=== PATIENT | female | born 1955 | race Two or more races ===

== ENCOUNTER 2024-07-21 19:41 | Emergency (ER) | payer MEDICAID, OTHER ==
[~2024-07-21] VITALS: Ht 157.5 cm; Wt 60.9 kg
--- NOTE | 2024-07-21 20:14 | ED.PDOC ---
Musculoskeletal HPI Comments 68 Y F, presents to the ED with CC of right shoulder pain. Patient states, that she has been experiencing right shoulder pain [id number]. Patient relays, that pain came on suddenly while standing and has been unable to move right arm since start of symptoms. Patient states, that current pain is an 8/10. Patient denies fall, weakness, numbness, or N/V/D. Chief Complaint: Upper Extremity Time Seen by MD: 20:00 Reviewed Notes: Nurses Notes, Medications, Allergies Allergies: Coded Allergies: NO KNOWN ALLERGIES (Unverified , 07/21/24) Information Source: Patient Mode of Arrival: Ambulatory Location: Right Extremity Location: Shoulder Timing: Hours Prehospital treatment: None Severity: Mild Able to Move Extremity: Yes Bear Weight: Limited Mechanism: None Circumstances: Spontaneous Onset of Symptoms: Spontaneous Symptoms: Pain DVT Risk Factors: NONE Last Tetanus: Unknown Associated signs and symptoms: Shoulder pain Past Medical History PAST MEDICAL HISTORY: High Lipids, HTN Surgical History: Denies all surgeries 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 SQUAD History: Unknown Family History Family History: Unknown Social History Smoker: Non-Smoker Alcohol: Denies ETOH Use Drugs: Denies Drug Use Lives In: Home Constitutional: denies: chills, diaphoresis, fatigue, fever, malaise, sweats, weakness, others EENTM: denies: blurred vision, double vision, ear bleeding, ear discharge, ear drainage, ear pain, ear ringing, eye pain, eye redness, hearing loss, mouth pain , mouth swelling, nasal discharge, nose bleeding, nose congestion, nose pain, photophobia, tearing, throat pain, throat swelling, voice changes, others Respiratory: denies: cough, hemoptysis, orthopnea, SOB at rest, shortness of breath, SOB with excertion, stridor, wheezing, others Cardiovascular: denies: chest pain, dizzy spells, diaphoresis, Dyspnea on exertion, edema, irregular heart beat, left arm pain, lightheadedness, palpitations, PND, syncope, others Gastrointestinal: denies: abdomen distended, abdominal pain, blood streaked bowels, constipated, diarrhea, dysphagia, difficulty swallowing, hematemesis, melena, nausea, poor appetite, poor fluid intake, rectal bleeding, rectal pain, vomiting, others Genitourinary: denies: abnormal vagina bleeding, burning, dyspareunia, dysuria, flank pain, frequency, hematuria, incontinence, pain, , vagina discharge, urgency, others Neurological: denies: dizziness, fainting, headache, left sided numbness, left sided weakness, numbness, paresthesia, pre-existing deficit, right sided numbness, right sided weakness, seizure, speech problems, tingling, tremors, weakness, others Musculoskeletal: reports: muscle pain (RIGHT SHOULDER ); denies: back pain, gout, joint pain, joint swelling, muscle stiffness, neck pain, others Integumetry: denies: bruises, change in color, change in hair/nails, dryness, laceration, lesions, lumps, rash, wounds, others Allergic/Immunocompromised: denies: Difficulty Healing, Frequent Infections, Hives, Itching, others Hematologic/Lymphatic: denies: anemia, blood clots, easy bleeding, easy bruising, swollen glands, others Endocrine: denies: excessive hunger, excessive sweating, excessive thirst, excessive urination, flushing, intolerance to cold, intolerance to heat, unexplained weight gain, unexplained weight loss, others Psychiatric: denies: anxiety, bipolar disorder, depression, hopeless, panic disorder, schizophrenia, sleepless, suicidal, others All Other Systems: Reviewed and Negative Physical Exam General Appearance: No Apparent Distress, Normal HEENT: Normal ENT Inspection, Pharynx Normal, TMs Normal Neck: Full Range of Motion, Non-Tender, Normal, Normal Inspection Respiratory: Chest Non-Tender, Lungs Clear, No Accessory Muscle Use, No Respiratory Distress, Normal Breath Sounds Cardiovascular: No Edema, No JVD, No Murmur, No Gallop, Normal Peripheral Pulses, Regular Rate/Rhythm Breast Exam: Deferred Gastrointestinal: No Organomegaly, Non Tender, No Pulsatile Mass, Normal Bowel Sounds, Soft Genitalia: Deferred Pelvic: Deferred Rectal: Deferred Extremities: No calf tenderness, Normal capillary refill, Normal inspection, Normal range of motion, Non-tender, No pedal edema Musculoskeletal : Location: Right Extremity Location: Shoulder Apperance: Limited ROM, Tenderness Neurologic: Alert, steel estimator II-XII nml as Tested, No Motor Deficits, Normal Affect, Normal Mood, No Sensory Deficits Cerebellar Function: Normal Reflexes: Normal Skin: Dry, Normal Color, Warm Lymphatic: No Adenopathy Was a procedure done? Was a procedure done?: No Differential Diagnosis EXT Differential Diagnosis: Fracture, Sprain, Dislocation, Gout, Strain X-Ray, Labs, Meds, VS Vital Signs Date Time Temp Pulse Resp B/P (MAP) Pulse Ox O2 Delivery O2 Flow Rate FiO2 07/21/24 20:25 97.9 73 18 162/86 (328) 97 [facility] [address] [facility] [address] Ph: [phone] DIAGNOSTIC IMAGING Diagnostic Imaging Report : [id number] Signed PATIENT: ALLEN JACKSONACCT: [id number] UNIT: [id number] : 1955 LOC: ER ROOM / BED: / AGE / SEX: 68 / F ADM STATUS: REG ER SERVICE 12 ORDERING PHYSICIAN: AMANDA CERVANTES PROCEDURE(s): LSHD2 - L SHOULDER 2+ VIEW XRAY REASON: pain ORDER NUMBER(s): [id number], ACCESSION NUMBER(s): [id number] CLINICAL INDICATION: Left shoulder pain TECHNIQUE: XY L SHOULDER 2+ VIEW XRAY Comparison: None FINDINGS/IMPRESSION: : There is no evidence of acute fracture or dislocation. Mild degenerative change of the acromioclavicular and glenohumeral joints with mild joint space narrowing of the acromioclavicular joint and osteophyte formation of the glenohumeral joint. Soft tissues are intact. Visualized portions of the lungs are clear. ATED BY: ALO ONEIL MD DICTATED DATE/TIME: 07/21/242040 SIGNED BY: ALO ONEIL MD SIGNED DATE/TIME: 07/21/242040 CC: X-Ray, Labs, Meds, VS Comment Imaging: X-rays and CT scans were reviewed and interpreted by this provider, imaging shows no fractures and no pathological disease. Pending radiology review. Laboratory: Labs reviewed and interpreted by this provider. No significant abnormalities noted. Patient has prior medical visits reviewed. Med reconciliation performed Vital signs reviewed Time of 1ST Reevaluation: 20:30 Reevaluation 1ST: Unchanged Patient Education/Counseling: Diagnosis, Treatment, Need For Follow Up (Follow up with the PCP in the next 24-48 hours.) Family Education/Counseling: No Family Present Departure 1 Departure Time of Disposition: 20:53 Impression: Primary Impression: Arthritis of left shoulder Disposition: HOME / SELF CARE / HOMELESS Condition: Fair e-Prescriptions Methylprednisolone (Medrol Dosepak) 4 Mg Rod 4 MG PO UD, #21 TAB UAD Prov: AMANDA CERVANTES PLASTICS HEAT WELDER 07/21/24 Discharged With: Self Critical Care Note Critical Care Time?: No Stability Stability form required: No Heart Score Heart Score: Heart Score Response (Comments) Value History N/A 0 EKG N/A 0 Age N/A 0 Risk Factors N/A 0 Troponin N/A 0 Total 0 I personally scribed for CERVANTES,CHRISTOPHER E PLASTICS HEAT WELDER ([email or web address]) on 07/21/24 at 20:14. Electronically submitted by Sophia Peña ([employer]). I personally scribed for CERVANTES,CHRISTOPHER E PLAST[employer] HEAT WELDER ([email or web address]) on 07/21/24 at 20:24. Electronically submitted by Sophia Peña ([employer]). I personally scribed for CERVANTES,CHRISTOPHER E PLASTICS HEAT WELDER ([email or web address]) on 07/21/24 at 20:25. Electronically submitted by Sophia Peña ([employer]). I personally scribed for CERVANTES,CHRISTOPHER E PLASTICS HEAT WELDER ([email or web address]) on 07/21/24 at 20:50. Electronically submitted by Sophia Peña ([email or web address]). FARARH CERVANTESOPHER E PLASTICS HEAT WELDER Jul 21, 2024 20:14
--- NOTE | 2024-07-21 20:44 | DVH ---
CLINICAL INDICATION: Left shoulder pain TECHNIQUE: XY L SHOULDER 2+ VIEW XRAY Comparison: None FINDINGS/IMPRESSION: : There is no evidence of acute fracture or dislocation. Mild degenerative change of the acromioclavicular and glenohumeral joints with mild joint space narro wing of the acromioclavicular joint and osteophyte formation of the glenohumeral joint. Soft tissues are intact. Visualized portions of the lungs are clear.
[2024-07-21] MEDS ORDERED: METH4PAK PO (20:55)
[2024-07-21 23:25] VITALS: BP 140/63; PULSE 68; RESP 18; TEMP 98.1; O2SAT 96
[2024-07-21] MEDS: KETOROLAC TROMETH 30 MG/ML 1ML VIAL IM ONE (23:31)
== END 2024-07-21 23:33 | disposition home or self-care (01) ==
LOC: ER 19:41
DX: M19.012 Primary osteoarthritis, left shoulder (principal); E78.5 Hyperlipidemia, unspecified; I10 Essential (primary) hypertension
CPT/HCPCS: 73030; 96372; 99283; J1885

== ENCOUNTER 2024-09-04 14:48 | Emergency (ER) | payer MEDICAID, OTHER ==
[~2024-09-04] VITALS: Ht 162.6 cm; Wt 57.3 kg
[~2024-09-04 14:48] MED LIST: METH4PAK PO
--- NOTE | 2024-09-04 15:35 | DVH ---
EXAM: XY CHEST PORTABLE HISTORY: gen weakness COMPARISON: None TECHNIQUE: Portable upright AP view of the chest was performed. FINDINGS: No pneumothorax, consolidative infiltrates, or pulmonary edema. The heart is not enlarged. There is thoracic degenerative disc disease. IMPRESSION: No acute intrathoracic process.
[2024-09-04 15:50] LABS: Basophils # (auto) 0 10 ^3/uL (0-0.2); Basophils % (auto) 0.6 % (0.0-2.0); Eosinophils # (auto) 0 10 ^3/uL (0-0.8); Eosinophils % (auto) 0.8 % (0.0-7.0); Hematocrit 34.5 % (36.0-46.0); Hemoglobin 11.8 g/dL (12.2-16.2); Lymphocytes # (auto) 1.8 10 ^3/uL (0.4-5.4); Lymphocytes % (auto) 33.6 % (10.0-50.0); Mean Corpuscular Hemoglobin 29.8 pg (28.0-32.0); Mean Corpuscular Hgb Conc. 34.2 g/dL (32.0-36.0); Mean Corpuscular Volume 86.9 fL (80.0-100.0); Monocytes # (auto) 0.5 10 ^3/uL (0-1.3); Monocytes % (auto) 8.5 % (0.0-12.0); Neutrophils # (auto) 3.1 10 ^3/uL (1.6-8.6); Neutrophils % (auto) 56.5 % (37.0-80.0); Nucleated Red Blood Cells % 0.1 %; Platelet Count (auto) 211 10^3/uL (140-450); Red Blood Cells 3.97 10^6/uL (4.0-5.20); Red Cell Distribution Width 13.2 % (11.8-14.3); White Blood Cell 5.4 10^3/uL (4.4-10.8)
--- NOTE | 2024-09-04 15:50 | ED.PDOC ---
HPI (NEURO) HPI Comments HPI: Poor Historian. 69-year-old female presents with a chief complaint of generalized weakness x onset noon with associated dizziness and blurry vision. Patient states that she had sudden onset of symptoms and states that she "feels drunk". Patient mentions that when she woke up this morning she felt fine and normal. Patient reports that her appendages feel weak. Patient was slightly hypertensive at 162/84. No other symptoms or modifying factors present at this time. Patient has not been taking her blood pressure medications for at least one-week because she change insurance. She does not know the name of her blood pressure medication. PMHx: HLD, HTN PSHx: Denies REVIEW OF SYSTEMS: CONSTITUTIONAL: Denies acute: fever, diaphoresis, chills, HEAD: Denies acute: headache, photophobia Eyes: Denies acute: Double vision, vision loss, eye pain, eye discharge. EARS: Denies acute: tinnitus, hearing loss, ear discharge, ear pain, THROAT: Denies acute: sore throat, swelling, difficulty swallowing , pain with swallowing, change in voice. NECK: Denies acute: neck pain, neck swelling, stiff neck. HEART: Denies acute : chest pain, palpitations, LUNGS: Denies acute: SOB, wheezing, cough, hemoptysis ABDOMEN: Denies acute: abdominal pain, Nausea, Vomiting, diarrhea, melena , hematemesis, hematochezia SKIN: Denies acute: rash, redness, lesions, itchiness. EXTREMITIES: Denies acute: calf pain, numbness, tingling, weakness, denies pain in extremity. Denies acute: Low back pain. Neuro: Denies acute: focal neurological deficit, motor or sensory focal neurological deficit, tremors, seizure like activity, confusion, change in mental status, loss of bowel or bladder function, cauda equina like symptoms. : Denies acute: dysuria, hematuria, flank pain, increase in urinary frequency. PSYCH: Denies acute: hallucination, suicidal ideation, homicidal ideation. FEMALE: Denies acute: abnormal vaginal bleeding, foul odor, unusual discharge. PHYSICAL EXAM: General: no acute distress, awake and alert. Head: normocephalic, atraumatic. Neck: supple, trachea is midline, no swelling. Throat: Normal phonation. Eyes:, no erythema, no purulent discharge, no proptosis, no icterus. Heart: regular rate, regular rhythm, no significant murmur appreciated. Lungs: no apparent respiratory distress, Able to speak in full sentences. No wheezing, no rhonchi, no crackles. No stridors Clear to auscultation bilaterally. Abdomen: non tender to palpation, non distended, soft, no guarding, no rebound, + bowel sounds. Neuro: Awake, Alert, oriented to name, self, situation, follows commands GCS=15. Speech is normal. Skin: no petechia, no purpura, no cyanosis, non-pale, not jaundice. Lower extremities: --no - Pitting edema no deformity, no focal swelling, no calf TTP. Makes eye contact. moves all four extremities. Face: no apparent facial droop. Ambulating in the ED independently. Stroke: finger to nose cerebellar testing is intact. No pronator drift. PERRLA, EOM-I CN 2-12 are grossly intact, Pedal pulses are palpable. No nystagmus. No nuchal rigidity, Kernig's sign, Brudzinski's sign, no meningeal signs. 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 Was a procedure done?: No Differential Diagnosis (SZ) General Weakness: Anemia, CVA, Dehydration, Dysrhythmia, Electrolyte imbalance, Encephalopathy, Guillain-Tiffin, Hypoglycemia, Hypotension, Hypovolemia, Labyrinthitis, Meniere's disease, Myasthenia gravis, Myocardial infarction, Pulmonary embolus, Renal failure, Repiratory failure, TIA, VBI, Vertigo: central, Vertigo: peripheral, Vestibular neuronitis X-Ray, Labs, Meds, VS Vital Signs Date Time Temp Pulse Resp B/P (MAP) Pulse Ox O2 Delivery O2 Flow Rate FiO2 09/04/24 22:32 98.4 72 18 155/66 (95) 97 98.4 09/04/24 21:08 98.1 63 17 182/80 (114) 98 98.1 09/04/24 21:07 182/80 09/04/24 20:14 97.5 65 18 170/77 (108) 97 97.5 09/04/24 19:09 98.0 60 17 143/80 (101) 98 98.0 09/04/24 15:47 66 18 97 Room Air 09/04/24 15:47 98.0 66 18 162/84 (110) 97 98.0 09/04/24 15:02 59 09/04/24 14:58 97.9 60 20 174/82 (112) 96 Lab Test 09/04/24 16:19 09/04/24 15:41 09/04/24 15:29 09/04/24 14:56 Range/Units Troponin I High Sensitivity < 3 L < 3 L </=34 ng/L Urine Color Colorless Yellow Urine Clarity Turbid H Clear Urine pH 6.5 5.0-9.0 Urine Specific [place] 1.004 1.001-1.035 Urine Protein Negative Negative Urine Ketones Negative Negative Urine Blood Negative Negative /uL Urine Nitrite 2+ H Negative Urine Bilirubin Negative Negative Urine Urobilinogen Normal Negative mg/dL Urine Leukocyte Esterase 2+ Negative /uL Urine RBC 3 0 - 4 /hpf Urine Microscopic WBC 15 H 0-5 /HPF Urine Squamous Epithelial Cells Few <5 /hpf Urine Bacteria Few H None Seen /hpf Urine Glucose Normal Normal mg/dL White Blood Count 5.4 4.4-10.8 10^3/uL Red Blood Count 3.97 L 4.0-5.20 10^6/uL Hemoglobin 11.8 L 12.2-16.2 g/dL Hematocrit 34.5 L 36.0-46.0 % Mean Corpuscular Volume 86.9 80.0-100.0 fL Mean Corpuscular Hemoglobin 29.8 28.0-32.0 pg Mean Corpuscular Hemoglobin Concent 34.2 32.0-36.0 g/dL Red Cell Distribution Width 13.2 11.8-14.3 % Platelet Count 211 140-450 10^3/uL Mean Platelet Volume 7.7 6.9-10.8 fL Neutrophils (%) (Auto) 56.5 37.0-80.0 % Lymphocytes (%) (Auto) 33.6 10.0-50.0 % Monocytes (%) (Auto) 8.5 0.0-12.0 % Eosinophils (%) (Auto) 0.8 0.0-7.0 % Basophils (%) (Auto) 0.6 0.0-2.0 % Neutrophils # (Auto) 3.1 1.6-8.6 10 ^3/uL Lymphocytes # (Auto) 1.8 0.4-5.4 10 ^3/uL Monocytes # (Auto) 0.5 0-1.3 10 ^3/uL Eosinophils # (Auto) 0 0-0.8 10 ^3/uL Basophils # (Auto) 0 0-0.2 10 ^3/uL Nucleated Red Blood Cells 0.1 % Sodium Level 141 136-145 mmol/L Potassium Level 3.9 3.5-5.1 mmol/L Chloride Level 105 98-107 mmol/L Carbon Dioxide Level 29 20-31 mmol/L Anion Gap 7 5-15 Blood Urea Nitrogen 14 9-23 mg/dL Creatinine 0.81 0.550-1.02 mg/dL Glomerular Filtration Rate Calc 78 >90 mL/min BUN/Creatinine Ratio 17.3 10.0-20.0 Serum Glucose 106 74-106 mg/dL Lactic Acid Level 0.5 0.4-2.0 mmol/L Calcium Level 9.9 8.7-10.4 mg/dL Magnesium Level 2.2 1.6-2.6 mg/dL Total Bilirubin 0.4 0.2-1.0 mg/dL Aspartate Amino Transferase (AST) 18 13-40 U/L Alanine Aminotransferase (ALT) 15 7-40 U/L Alkaline Phosphatase 79 46-116 U/L Total Protein 7.4 5.7-8.2 g/dL Albumin 4.8 3.2-4.8 g/dL POC Glucose 113 H 70-106 mg/dl Current Medications Medications (Trade) Dose Ordered Sig/Valeriano Route Start Time Stop Time Status Last Admin Meclizine HCl (Antivert Tablet) 25 mg ONCE ONCE PO 09/04/24 16:00 09/04/24 16:01 DC 09/04/24 16:24 Ceftriaxone Sodium 50 ml @ 100 mls/hr ONCE ONCE IV 09/04/24 16:45 09/04/24 17:14 DC 09/04/24 18:50 Losartan Potassium (Cozaar Tablet) 25 mg ONCE ONCE PO 09/04/24 21:00 09/04/24 21:01 DC 09/04/24 21:07 PATIENT: ALLEN JACKSONT: [id number]: [id number] : 1955 LOC: ER ROOM / BED: / AGE / SEX: 69 / F ADM STATUS: REG ER SERVICE 1513 ORDERING PHYSICIAN: EITAN SAMPSON DO PROCEDURE(s): CXRP - CHEST PORTABLE REASON: gen weak ORDER NUMBER(s): [id number], ACCESSION NUMBER(s): [id number] EXAM: XY CHEST PORTABLE HISTORY: gen weakness COMPARISON: None TECHNIQUE: Portable upright AP view of the chest was performed. FINDINGS: No pneumothorax, consolidative infiltrates, or pulmonary edema. The heart is not enlarged. There is thoracic degenerative disc disease. IMPRESSION: No acute intrathoracic process. ATED BY: JENNY SANCHEZ MD DICTATED DATE/TIME: 09/04/24 153 SIGNED BY: JENNY SANCHEZ MD SIGNED DATE/TIME: 09/04/24 153 PATIENT: ALLEN JACKSONT: [id number] UNIT: [id number] : 1955 LOC: ER ROOM / BED: / AGE / SEX: 69 / F ADM STATUS: REG ER SERVICE 1546 ORDERING PHYSICIAN: EITAN SAMPSON DO PROCEDURE(s): HWOCT - HEAD WITHOUT CONTRAST REASON: dizzy weak ORDER NUMBER(s): [id number], ACCESSION NUMBER(s): [id number] EXAM: CT HEAD WITHOUT CONTRAST INDICATION: dizzy weak TECHNIQUE: CT of the head without intravenous contrast. Radiation Dose Information: CT Dose: CTDI volume is 48.76 mGy. Dose-length product is 781.88 mGy*cm The dose indicators for CT are the volume Computed Tomography (CT) Dose Index (CTDIvol) and the Dose Length Product (DLP), and are measured in units of mGy and mGy-cm, respectively. These indicators are not patient dose, but values generated from the CT scanner acquisition factors. The report includes radiation exposure data for exposures received during this examination. COMPARISON: None FINDINGS: There is no evidence of acute intracranial hemorrhage, extra-axial collection, mass effect, midline shift, herniation or hydrocephalus. The ventricles, sulci and cisterns are age appropriate. The tatum-white differentiation is intact. Patchy periventricular and subcortical white matter hypoattenuation is nonspecific but may be related to small vessel ischemic disease. The visualized paranasal sinuses and mastoid air cells are clear. The surrounding soft tissues and osseous structures are unremarkable. IMPRESSION: 1. No acute intracranial hemorrhage 2. No CT findings of territorial ischemia. HS:Y ATED BY: AMANDA PAREDES Jr., DO DICTATED DATE/TIME: 09/04/241613 SIGNED BY: AMANDA PAREDES Jr., SIGNED DATE/TIME: 09/04/241613 Time of 1ST Reevaluation: 16:11 Reevaluation 1ST: Unchanged Time of 2ND Reevaluation: 20:14 (Daughter was able to find out the name of the blood pressure medication. It is losartan 25 mg one pill daily.) Reevaluation 2ND: Resolved Patient Education/Counseling: Diagnosis, Treatment, Prognosis Family Education/Counseling: Diagnosis, Treatment, Prognosis Comments Patient presented with the above HPI.--dizziness/hypertension----workup was initiated. patient was found with the above mentioned diagnosis. the following medications were ordered: please refer to order lists of meds and tests obtained by myself Dr. Sampson. Patient ED course and VS have been stabilized. Patient has been reassessed in the ED and remained in a stable condition. Pertinent incidental findings were discussed with the patient and/or family. Patient/family voices understanding and is agreeable with plan. Patient has been observed in the ED adequate length of time to insure improvement/stability. Escalation of care considered: Consideration of escalation to observation or admission Patient was DISCHARGED home in a stable condition. All the reports of any imaging studies that were ordered by myself were reviewed by myself. Departure 1 Departure Time of Disposition: 16:43 Impression: Primary Impression: UTI (urinary tract infection) Additional Impressions: Dizziness HTN (hypertension) Disposition: 01 HOME / SELF CARE / HOMELESS Condition: Stable Additional Instructions: Additional discharge instructions: You MUST follow-up with your primary care/family doctor in 1 to 2 days. If you are unable to see your primary care/family doctor, please return to our emergency room for re-assessment and re-evaluation in 1 to 2 days. Return to the emergency room here in our facility or to the nearest ER [facility] if your symptoms change or worsen. CONSULTATIONS: you MUST Follow-up for consultation as soon as possible with: -ENT doctor and neurology and cardiology in 1-2 days. Please call for appointment. You MUST call the consultants office yourself to make an appointment. You may need to arrange that through your insurance and/or your primary/family doctor. If you are unable to see the senior erp consultant in 1 to 2 days, you must return to our emergency room (or any other ER of your choice) for re-assessment and re- evaluation. Adequate fluid hydration. e-Prescriptions Nitrofurantoin Monohydrate Mac (Macrobid) 100 Mg Cap 100 MG PO BID for 7 Days, #14 CAP Prov: EITAN SAMPSON DO 09/04/24 Discharged With: Self Critical Care Note Critical Care Time?: No I personally scribed for EITAN SAMPSON DO ([email or web address]) on 09/04/24 at 15:50. Electronically submitted by Mike Pena ([email or web address]). I personally scribed for EITAN SAMPSON DO ([email or web address]) on 09/04/24 at 15:50. Electronically submitted by Mike Pena ([email or web address]). I personally scribed for EITAN SAMPSON DO ([email or web address]) on 09/04/24 at 16:44. Electronically submitted by Mike Pena ([email or web address]). I personally scribed for EITAN SAMPSON DO ([email or web address]) on 09/04/24 at 16:49. Electronically submitted by Mike Pena ([email or web address]). EITAN SAMPSON DO Sep 04, 2024 15:50
--- NOTE | 2024-09-04 16:17 | DVH ---
EXAM: CT HEAD WITHOUT CONTRAST INDICATION: dizzy weak TECHNIQUE: CT of the head without intravenous contrast. Radiation Dose Information: CT Dose: CTDI volume is 48.76 mGy. Dose-length product is 781.88 mGy*cm The dose indicators for CT are the volume Computed Tomography (CT) Dose Index (CTDIvol) and the Dose Length Product (DLP), and are measured in units of mGy and mGy-cm, respectively. These indicators are not patient dose, but values generated from the CT scanner acquisition factors. The report includes radiation exposure data for exposures received during this examination. COMPARISON: None FINDINGS: There is no evidence of acute intracranial hemorrhage, extra-axial collection, mass effect, midline s hift, herniation or hydrocephalus. The ventricles, sulci and cisterns are age appropriate. The tatum-white differentiation is intact. Patchy periventricular and subcortical white matter hypoattenuation is nonspecific but may be related to small vessel ischemic disease. The visualized paranasal sinuses and mastoid air cells are clear. The surrounding soft tissues and osseous structures are unremarkable. IMPRESSION: 1. No acute intracranial hemorrhage 2. No CT findings of territorial ischemia. HS:Y
[2024-09-04] MEDS: MECLIZINE HCL 25 MG TAB PO ONE (16:24)
[2024-09-04 16:36] LABS: Urine Bacteria FEW /hpf (None Seen); Urine Blood Negative /uL (Negative); Urine Clarity Turbid (Clear); Urine Color Colorless (Yellow); Urine Protein, UAD Negative (Negative); Urine Specific Gravity 1.004 (1.001-1.035); Urine Squamous Epithelial Cell FEW /hpf (<5); Urine Urobilinogen Normal (Negative); Urine WBC 15 /HPF (0-5); Urine pH 6.5 (5.0-9.0)
[2024-09-04 16:41] LABS: Alanine Aminotransferase 15 U/L (7-40); Alkaline Phosphatase 79 U/L (46-116); Anion Gap 7 (5-15); Aspartate Aminotransferase 18 U/L (13-40); BUN/Creatinine Ratio 17.3 (10.0-20.0); Bilirubin, Total 0.4 mg/dL (0.2-1.0); Blood Urea Nitrogen 14 mg/dL (9-23); Calcium 9.9 mg/dL (8.7-10.4); Carbon Dioxide 29 mmol/L (20-31); Chloride 105 mmol/L (98-107); Glucose 106 mg/dL (74-106); Potassium 3.9 mmol/L (3.5-5.1); Sodium 141 mmol/L (136-145); Total Protein 7.4 g/dL (5.7-8.2)
[2024-09-04 16:43] LABS: Albumin 4.8 g/dL (3.2-4.8)
[2024-09-04] MEDS: cefTRIAXone 1GM/50ML D5W 50 ML IV ONE (18:50)
[2024-09-04] MEDS ORDERED: NITR-87 PO (20:14)
[2024-09-04] MEDS: LOSARTAN POTASSIUM 25 MG TAB PO ONE (21:07)
[2024-09-04 22:32] VITALS: BP 155/66; PULSE 72; RESP 18; TEMP 98.4; O2SAT 97
--- NOTE | 2024-09-08 14:34 | ECG ---
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
== END 2024-09-04 22:41 | disposition home or self-care (01) ==
LOC: ER 14:48
DX: N39.0 Urinary tract infection, site not specified (principal); I10 Essential (primary) hypertension; R42 Dizziness and giddiness; E78.5 Hyperlipidemia, unspecified
CPT/HCPCS: 36415; 70450; 71045; 80053; 81001; 82962; 83605; 83735; 84484; 85025; 93005; 96365; 99285; J0696; J8597

== ENCOUNTER 2025-02-12 14:45 | Emergency (ER) | payer MEDICAID ==
[~2025-02-12] VITALS: Ht 160 cm; Wt 58.1 kg
[~2025-02-12 14:45] MED LIST changes: +NITR-87 PO
--- NOTE | 2025-02-12 15:38 | ED.PDOC ---
Back pain HPI HPI Comments A 69 YEAR OLD FEMALE BIB DAUGHTER, PRESENTS TO THE ED WITH COMPLAINT OF EXACERBATING LOWER BACK PAIN RADIATING DOWN BILATERAL LEGS S/P LIFTING HEAVY BOXES 2 DAYS AGO. PATIENT REPORTS HISTORY OF CHRONIC BACK PAIN FOR YEARS IN WHICH SHE IS MEDICATED WITH IBUPROFEN/TYLENOL (NO PAIN RELIEF) AND STEROIDS WHEN FLARE UPS PRESENTS. PT REQUESTS PAIN AND STEROID MEDICATION AT THIS TIME. HE PATIENT DENIES ANY NUMBNESS, WEAKNESS, TINGLING SENSATION, URINARY/BOWEL INCONTINENCE. THERE ARE NO SIGNS AND SYMPTOMS OF CAUDA EQUINA. PATIENT ALSO DENIES FEVER, CHILLS, SHORTNESS OF BREATH, CHEST PAIN, ABDOMINAL PAIN, NAUSEA, VOMITING, HEADACHE, OR OTHER COMPLAINTS. NO OTHER SYMPTOMS OR MODIFYING FACTORS AT THIS TIME. PATIENT IS ALERT, ORIENTED X 4, AND HAS STEADY GAIT. Chief Complaint: Body Pain Time Seen by MD: 15:21 Reviewed Notes: Nurses Notes, Medications, Allergies Allergies: Coded Allergies: NO KNOWN ALLERGIES (Unverified , 07/21/24) Home Meds Active Scripts Nitrofurantoin Monohydrate Mac (Macrobid) 100 Mg Cap, 100 MG PO BID for 7 Days, #14 CAP Prov:EITAN SAMPSON DO 09/04/24 Methylprednisolone (Medrol Dosepak) 4 Mg Rod, 4 MG PO UD, #21 TAB UAD Prov:AMANDA CERVANTESP 07/21/24 Information Source: Patient, Relative (DAUGHTER ) Mode of Arrival: Ambulatory Timing: Days Duration: Since onset Location of Back pain: (B) Lumbar Radiates to: Posterior: (R) Buttocks, (R) Thigh Radiates to: Lateral: (R) Buttocks, (R) Thigh Severity: Moderate Quality: Aching, Burning, Cramping Onset: Bending, Lifing Circumstance: Other History of: Chronic Back Pain Modifying Factors: Movement, Walking, Nothing Associated signs and symptoms: None Past Medical History PAST MEDICAL HISTORY: High Lipids, HTN Past Medical History (Other): CHRONIC LOW BACK PAIN, DDD OF LOW BACK Surgical History: Denies all surgeries 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 Family History Family History: Unknown Social History Smoker: Non-Smoker Alcohol: Denies ETOH Use Drugs: Denies Drug Use Lives In: Home Constitutional: denies: chills, diaphoresis, fatigue, fever, malaise, sweats, weakness, others EENTM: denies: blurred vision, double vision, ear bleeding, ear discharge, ear drainage, ear pain, ear ringing, eye pain, eye redness, hearing loss, mouth pain, mouth swelling, nasal discharge, nose bleeding, nose congestion, nose pain, photophobia, tearing, throat pain, throat swelling, voice changes, others Respiratory: denies: cough, hemoptysis, orthopnea, SOB at rest, shortness of breath, SOB with excertion, stridor, wheezing, others Cardiovascular: denies: chest pain, dizzy spells, diaphoresis, Dyspnea on exertion, edema, irregular heart beat, left arm pain, lightheadedness, palpitations, PND, syncope, others Gastrointestinal: denies: abdomen distended, abdominal pain, blood streaked bowels, constipated, diarrhea, dysphagia, difficulty swallowing, hematemesis, melena, nausea, poor appetite, poor fluid intake, rectal bleeding, rectal pain, vomiting, others Genitourinary: denies: abnormal vagina bleeding, burning, dyspareunia, dysuria, flank pain, frequency, hematuria, incontinence, pain, , vagina discharge, urgency, others Neurological: denies: dizziness, fainting, headache, left sided numbness, left sided weakness, numbness, paresthesia, pre-existing deficit, right sided numbness, right sided weakness, seizure, speech problems, tingling, tremors, weakness, others Musculoskeletal: reports: back pain, muscle pain; denies: gout, joint pain, joint swelling, muscle stiffness, neck pain, others Integumetry: denies: bruises, change in color, change in hair/nails, dryness, laceration, lesions, lumps, rash, wounds, others Allergic/Immunocompromised: denies: Difficulty Healing, Frequent Infections, Hives, Itching, others Hematologic/Lymphatic: denies: anemia, blood clots, easy bleeding, easy bruising, swollen glands, others Endocrine: denies: excessive hunger, excessive sweating, excessive thirst, excessive urination, flushing, intolerance to cold, intolerance to heat, unexplained weight gain, unexplained weight loss, others Psychiatric: denies: anxiety, bipolar disorder, depression, hopeless, panic disorder, schizophrenia, sleepless, suicidal, others All Other Systems: Reviewed and Negative Physical Exam General Appearance: No Apparent Distress, Normal HEENT: Normal ENT Inspection, PERRL/EOMI, Pharynx Normal, TMs Normal Neck: Full Range of Motion, Non-Tender, Normal, Normal Inspection Respiratory: Chest Non-Tender, Lungs Clear, No Accessory Muscle Use, No Respiratory Distress, Normal Breath Sounds Cardiovascular: No Edema, No JVD, No Murmur, No Gallop, Normal Peripheral Pulses, Regular Rate/Rhythm Breast Exam: Deferred Gastrointestinal: No Organomegaly, Non Tender, No Pulsatile Mass, Normal Bowel Sounds, Soft Genitalia: Deferred Pelvic: Deferred Rectal: Deferred Extremities: No calf tenderness, Normal capillary refill, Normal inspection, Normal range of motion, Non-tender, No pedal edema Musculoskeletal : Location: Bilateral Extremity Location: Back Apperance: Tenderness: Moderate (TENDERNESS AND MUSCLE SPASM ON LOW BACK, NO BONY TENDERNESS, SWELLING AND DEFORMITY OF LOWER BACK. ) Neurologic: Alert, building insulation installer II-XII nml as Tested, No Motor Deficits, Normal Affect, Normal Mood, No Sensory Deficits Cerebellar Function: Normal Reflexes: Normal Skin: Dry, Normal Color, Warm Peripheral Pulses: 2+ carotid (R), 2+ carotid (L), 2+ dorsalis pedis (R), 2+ dorsalis pedis (L) Lymphatic: No Adenopathy Was a procedure done? Was a procedure done?: No Back Pain Differential Dx Differential Diagnosis: DJD, Fracture, Musculoskeletal Pain, Strain X-Ray, Labs, Meds, VS Vital Signs Date Time Temp Pulse Resp B/P (MAP) Pulse Ox O2 Delivery O2 Flow Rate FiO2 02/12/25 14:47 98.1 91 16 151/77 96 98.1 X-Ray, Labs, Meds, VS Comment EXTERNAL MEDICAL RECORDS REVIEWED: [NONE] INDEPENDENT HISTORIANS: [NONE] SOCIAL DETERMINANTS OF HEALTH: [NONE] LABS ORDERED: NONE REVIEWED AND INTERPRETED RESULTS: NONE IMAGING ORDERED: NONE TREATMENTS ORDERED: SOLU MEDROL IM AND 5/325MG NORCO 5/325 PO PROCEDURES PERFORMED: NONE CRITICAL CARE TIME: NONE I HAVE DISCUSSED THE PATIENT WITH THE ATTENDING PHYSICIAN [PHYSICIAN'S NAME] AND HE AGREES WITH THE PATIENT'S PLAN OF CARE AND DISPOSITION. BASED ON THE PATIENT'S PERSISTENCE OF SYMPTOMS, THE PATIENT SOUGHT OUT ED CONSULT. BASED ON MY PHYSICAL EXAMINATION AND PATIENT'S HISTORY OF CHRONIC BACK PAIN, THERE IS NO NEW INJURY TO THE PATIENT'S BACK. THE PATIENT DENIES ANY NUMBNESS, WEAKNESS, TINGLING SENSATION, URINARY/BOWEL INCONTINENCE. THERE ARE NO SIGNS AND SYMPTOMS OF CAUDA EQUINA. THE PATIENT STATES BACK PAIN EXACERBATED S/P LIFTING HEAVY BOXES 2 DAYS AGO AND REQUEST PAIN MEDICATION FOR RELIEF. AT THIS POINT, THERE IS NO INDICATION FOR ANY IMAGING. THE PATIENT WAS ADVISED TO FOLLOW UP WITH PCP FOR FURTHER MANAGEMENT ON PAIN CONTROL, GIVEN TYLENOL AND IBUPROFEN TAKEN AT HOME DO NOT RELIEF HER PAIN. PATIENT WAS GIVEN NOROC 5/324MG PO WITH SOLU MEDROLIM DURING ER VISIT BUT WILL BE DISCHARGED HOME WITH RX: PREDNISONE AND TRAMADOL 50MG. MEDICATION WARNINGS GIVEN. OVERALL PATIENT'S VITAL SIGNS ARE STABLE AND THE PATIENT WILL BE DISCHARGED HOME. Time of 1ST Reevaluation: 15:26 Reevaluation 1ST: Improved Patient Education/Counseling: Diagnosis, Treatment, Need For Follow Up Family Education/Counseling: Diagnosis, Treatment, Need For Follow Up Medical Screening: No EMC Exist At This Time SEPSIS Sepsis Screen Date sepsis recognized/suspect: Feb 12, 2025 Time Sepsis recognized/suspect: 145 Recent Procedure: No On Antibiotic Therapy: No Respiratory Rate >20: No Heart Rate >90: Yes Temp<36 C (96.8 F) or >38.3 C: No SBP <90 or MAP <65 mmHG: No New Acute Mental Status Change: No Is the patient on CPAP, BIPAP,: No Vital Signs Date Time Temp Pulse Resp B/P (MAP) Pulse Ox O2 Delivery O2 Flow Rate FiO2 02/12/25 14:47 98.1 91 16 151/77 96 98.1 Departure 1 Departure Time of Disposition: 16:20 Impression: Primary Impression: Acute exacerbation of chronic low back pain Additional Impression: Pain management Disposition: 01 HOME / SELF CARE / HOMELESS Condition: Stable Additional Instructions: FOLLOW-UP WITH PCP IN 1 TO 2 DAYS. TAKE MEDICATIONS PRESCRIBED. RETURN TO ED FOR ANY NEW OR WORSENING SYMPTOMS. e-Prescriptions Tramadol HCl (Tramadol HCl) 50 Mg Tab 50 MG PO BID, #20 TAB Prov: LIBAN MOJICA 02/12/25 Prednisone (Prednisone) 20 Mg Tab 40 MG PO DAILY, #20 TAB Prov: LIBAN MOJICA 02/12/25 Discharged With: Self, Relative (DAUGHTER ) Critical Care Note Critical Care Time?: No Stability Stability form required: No I personally scribed for LIBAN MOJICA ([email or web address]) on 02/12/25 at 15:38. Electronically submitted by Michaelle Hayward ([facility]). LIBAN MOJICA Feb 12, 2025 15:38
[2025-02-12] MEDS: HYDROcodone-ACET 5/325MG TAB PO ONE (15:55)
[2025-02-12] MEDS: methylPREDNISolone SOD SUCC 125 MG/2 ML VL IM ONE (15:55)
[2025-02-12] MEDS ORDERED: TRAM-626 PO (15:57)
[2025-02-12] MEDS ORDERED: PRED20TA2 PO (15:57)
[2025-02-12 16:10] VITALS: BP 118/81; PULSE 83; RESP 18; TEMP 98; O2SAT 97
== END 2025-02-12 16:12 | disposition home or self-care (01) ==
LOC: ER 14:49
DX: G89.29 Other chronic pain (principal); E78.5 Hyperlipidemia, unspecified; I10 Essential (primary) hypertension; Z79.899 Other long term (current) drug therapy
CPT/HCPCS: 96372; 99283; J2919

== ENCOUNTER 2025-02-15 09:58 | Inpatient (IN) | payer MEDICAID ==
[~2025-02-15] VITALS: Ht 157.5 cm; Wt 58.1 kg
[~2025-02-15 09:58] MED LIST changes: +PRED20TA2 PO; +TRAM-626 PO
--- NOTE | 2025-02-15 10:39 | ED.PDOC ---
Back pain HPI HPI Comments A 69-year-old female with a past medical history of Hypertension, Hyperlipidemia presents to the emergency department with a chief complaint of non radiating atraumatic low back pain onset 2 weeks. Patient states the night before pain began she was lifting heavy boxes, next morning woke up with low back pain. Patient was seen in this ED on 02/12/25, for same symptoms, was given Solu- Medrol and Essie in the ED was discharged with a prescription of Tramadol and Prednisone. Patient states symptoms have not improved, has been taking medication as prescribed. Currently patient rates pain 10/10, pain worsens with ambulation. No other symptoms or modifying factors present at this time. Denies fall, injury Denies dysuria, hematuria Denies numbness/tingling of extremities Denies headache, dizziness Denies chest pain, shortness of breath Chief Complaint: Back Pain Time Seen by MD: 10:30 Reviewed Notes: Medications, Allergies Allergies: Coded Allergies: NO KNOWN ALLERGIES (Unverified , 07/21/24) Home Meds Active Scripts Tramadol HCl (Tramadol HCl) 50 Mg Tab, 50 MG PO BID, #20 TAB Prov:LIBAN MOJICA 02/12/25 Prednisone (Prednisone) 20 Mg Tab, 40 MG PO DAILY, #20 TAB Prov:LIBAN MOJICA 02/12/25 Nitrofurantoin Monohydrate Mac (Macrobid) 100 Mg Cap, 100 MG PO BID for 7 Days, #14 CAP Prov:EITAN SAMPSON DO 09/04/24 Methylprednisolone (Medrol Dosepak) 4 Mg Rod, 4 MG PO UD, #21 TAB UAD Prov:AMANDA CERVANTES 07/21/24 Reported Medications Atorvastatin Calcium (Lipitor) 20 Mg Tab, 1 TAB PO DAILY, #90 TAB 1 Refill 02/16/25 Information Source: Patient, Relative Mode of Arrival: Ambulatory Timing: Weeks Duration: Since onset Past Medical History PAST MEDICAL HISTORY: High Lipids, HTN Surgical History: Denies all surgeries 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 Family History Family History: Unknown Social History Smoker: Non-Smoker Alcohol: Denies ETOH Use Drugs: Denies Drug Use Lives In: Home All Other Systems: Reviewed and Negative (as per HPI) Physical Exam General Appearance: Normal HEENT: Normal ENT Inspection, Pharynx Normal, TMs Normal Neck: Full Range of Motion, Non-Tender, Normal, Normal Inspection Respiratory: Chest Non-Tender, Lungs Clear, No Accessory Muscle Use, No Respiratory Distress, Normal Breath Sounds Cardiovascular: No Edema, No JVD, No Murmur, No Gallop, Normal Peripheral Pulses, Regular Rate/Rhythm Breast Exam: Deferred Gastrointestinal: No Organomegaly, Non Tender, No Pulsatile Mass, Normal Bowel Sounds, Soft Genitalia: Deferred Pelvic: Deferred Rectal: Deferred Extremities: No calf tenderness, Normal capillary refill Musculoskeletal : Extremity Location: Back Apperance: Normal Neurologic: Alert, 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 Was a procedure done?: No Back Pain Differential Dx Differential Diagnosis: Musculoskeletal Pain, Other X-Ray, Labs, Meds, VS Vital Signs Date Time Temp Pulse Resp B/P (MAP) Pulse Ox O2 Delivery O2 Flow Rate FiO2 02/15/25 17:17 97.7 69 16 140/74 (96) 97 97.7 02/15/25 11:53 82 17 145/81 02/15/25 09:59 98.6 89 20 130/74 96 98.6 Lab Test 02/15/25 13:23 02/15/25 10:49 Range/Units White Blood Count 6.7 4.4-10.8 10^3/uL Red Blood Count 4.37 4.0-5.20 10^6/uL Hemoglobin 13.2 12.2-16.2 g/dL Hematocrit 37.4 36.0-46.0 % Mean Corpuscular Volume 85.6 80.0-100.0 fL Mean Corpuscular Hemoglobin 30.1 28.0-32.0 pg Mean Corpuscular Hemoglobin Concent 35.2 32.0-36.0 g/dL Red Cell Distribution Width 13.1 11.8-14.3 % Platelet Count 252 140-450 10^3/uL Mean Platelet Volume 7.6 6.9-10.8 fL Neutrophils (%) (Auto) 69.2 37.0-80.0 % Lymphocytes (%) (Auto) 22.5 10.0-50.0 % Monocytes (%) (Auto) 7.4 0.0-12.0 % Eosinophils (%) (Auto) 0.5 0.0-7.0 % Basophils (%) (Auto) 0.4 0.0-2.0 % Neutrophils # (Auto) 4.6 1.6-8.6 10 ^3/uL Lymphocytes # (Auto) 1.5 0.4-5.4 10 ^3/uL Monocytes # (Auto) 0.5 0-1.3 10 ^3/uL Eosinophils # (Auto) 0 0-0.8 10 ^3/uL Basophils # (Auto) 0 0-0.2 10 ^3/uL Nucleated Red Blood Cells 0.1 % Sodium Level 140 136-145 mmol/L Potassium Level 3.4 L 3.5-5.1 mmol/L Chloride Level 99 98-107 mmol/L Carbon Dioxide Level 30 20-31 mmol/L Anion Gap 11 5-15 Blood Urea Nitrogen 14 9-23 mg/dL Creatinine 0.74 0.550-1.02 mg/dL Glomerular Filtration Rate Calc 87 >90 mL/min BUN/Creatinine Ratio 18.9 10.0-20.0 Serum Glucose 110 H 74-106 mg/dL Calcium Level 10.0 8.7-10.4 mg/dL Urine Color Light-yellow Yellow Urine Clarity Clear Clear Urine pH 7.0 5.0-9.0 Urine Specific [place] 1.010 1.001-1.035 Urine Protein Negative Negative Urine Ketones Negative Negative Urine Blood Negative Negative /uL Urine Nitrite Negative Negative Urine Bilirubin Negative Negative Urine Urobilinogen Normal Negative mg/dL Urine Leukocyte Esterase 2+ Negative /uL Urine RBC <1 0 - 4 /hpf Urine Microscopic WBC 2 0-5 /HPF Urine Squamous Epithelial Cells Few <5 /hpf Urine Bacteria None seen None Seen /hpf Urine Glucose Normal Normal mg/dL [facility] [id number] [place] [address] Ph: [phone] DIAGNOSTIC IMAGING Diagnostic Imaging Report : [id number] Signed PATIENT: ALLEN JACKSONACCT: [id number] UNIT: [id number] : 1955 LOC: ER ROOM / BED: / AGE / SEX: 69 / F ADM STATUS: REG ER SERVICE [id number] ORDERING PHYSICIAN: MARYJO WEBER NP PROCEDURE(s): LS2CT - LS SPINE WO CONTRAST REASON: Back pain x 2 weeks ORDER NUMBER(s): [id number], ACCESSION NUMBER(s): [id number] EXAM: CT LS SPINE WO CONTRAST HISTORY: Back pain x 2 weeks COMPARISON: None TECHNIQUE: Noncontrast axial CT images of the lumbar spine were performed. Sagittal and coronal reformatted images were obtained. This CT exam was performed using one or more of the following dose reduction techniques: Automated exposure control, adjustment of the mA and/or kv according to patient size, or the use of iterative reconstruction techniques. Radiation Dose: CT Dose: CTDI volume is 8.12 mGy. Dose-length product is 253.58 mGy*cm FINDINGS: No fracture or listhesis are identified about the lumbar spine. There is moderate degenerative disc disease and facet arthropathy. There is xofl-jg-jlyfdrbr spinal canalstenosis at L1-L2, L2-L3, and L4-L5. There is significant neural foraminal stenosis bilaterally at L5-S1 There is fecal retention in the colon, best appreciated on the bone plant supervisor view. There are sigmoid colon diverticula, not fully imaged here. 2.3 cm gallstone is identified in the dependent portion of the gallbladder. IMPRESSION: 1. No fracture of the lumbar spine. 2. Degenerative disc disease and facet arthropathy with uakz-wk-tgdbdgag spinal canal stenosis at multiple levels and significant bilateral neural foraminal stenosis at L5-S1. Consider follow-up noncontrast MRI of the lumbar spine for better characterization on an outpatient basis, especially if the patient complains of lower extremity radicular symptoms. 3. Fecal retention in the colon suggestive of constipation. 4. Cholelithiasis. ATED BY: JENNY SANCHEZ MD DICTATED DATE/TIME: 02/15/251124 SIGNED BY: JENNY SANCHEZ MD SIGNED DATE/TIME: 02/15/251124 CC: X-Ray, Labs, Meds, VS Comment A 69-year-old female with a past medical history of Hypertension, Hyperlipidemia presents to the emergency department with a chief complaint of non radiating atraumatic low back pain onset 2 weeks. labs were ordered. Urinalysis was ordered to rule out UTI or hematuria. Diagnostic imaging ordered by me and results interpreted by radiology : CT LS SPINE WO CONTRAST: IMPRESSION: 1. No fracture of the lumbar spine. 2. Degenerative disc disease and facet arthropathy with gutv-rj-smetvykx spinal canal stenosis at multiple levels and significant bilateral neural foraminal stenosis at L5-S1. Consider follow-up noncontrast MRI of the lumbar spine for better characterization on an outpatient basis, especially if the patient complains of lower extremity radicular symptoms. 3. Fecal retention in the colon suggestive of constipation. 4. Cholelithiasis. Patient was given: Morphine 4 mg. Tolerated medications with no adverse reaction. The patient's workup reveals that the patient needs further evaluation and/or treatment for the above medical conditions. Will be admitted for pain control and MRI Patient verbalized understanding of the above and is awaiting further evaluation by the admitting service. Time of 1ST Reevaluation: 11:00 Reevaluation 1ST: Improved Patient Education/Counseling: Diagnosis, Treatment Family Education/Counseling: Diagnosis, Treatment SEPSIS Sepsis Screen Date sepsis recognized/suspect: Feb 15, 2025 Time Sepsis recognized/suspect: 1002 Recent Procedure: No On Antibiotic Therapy: No Respiratory Rate >20: No Heart Rate >90: No Temp<36 C (96.8 F) or >38.3 C: No SBP <90 or MAP <65 mmHG: No New Acute Mental Status Change: No Is the patient on CPAP, BIPAP,: No Physician Orders Ls Spine Wo Contrast (02/15/25 10:37) Vital Signs Date Time Temp Pulse Resp B/P (MAP) Pulse Ox O2 Delivery O2 Flow Rate FiO2 02/15/25 17:17 97.7 69 16 140/74 (96) 97 97.7 02/15/25 11:53 82 17 145/81 02/15/25 09:59 98.6 89 20 130/74 96 98.6 Laboratory Tests Test 02/15/25 13:23 White Blood Count 6.7 10^3/uL (4.4-10.8) Departure 1 Departure Time of Disposition: 12:12 Impression: Primary Impression: Neural foraminal stenosis of lumbar spine Disposition: ADMITTED INPATIENT Condition: Fair Additional Instructions: Discharge Note: Continue on your medications. Do not drive when taking narcotics. Drink plenty of fluids. Follow up with your primary Dr. Take your prescriptions as ordered. If your condition becomes worse call and follow up with your primary for instructions or return to the ER if needed. Thank you for visiting [facility]. Critical Care Note Critical Care Time?: No Stability Stability form required: No Heart Score Heart Score: Heart Score Response (Comments) Value History N/A 0 EKG N/A 0 Age N/A 0 Risk Factors N/A 0 Troponin N/A 0 Total 0 I personally scribed for MARYJO WEBER NP ([email or web address]) on 02/15/25 at 10:38. Electronically submitted by Laney Slaughter ([email or web address]). I personally scribed for MARYJO WEBER NP ([employer]) on 02/15/25 at 10:40. Electronically submitted by Laney Slaughter ([email or web address]). I personally scribed for MARYJO WEBER NP ([employer]) on 02/15/25 at 11:31. Electronically submitted by Laney Slaughter ([email or web address]). MARYJO WEBER NP Feb 15, 2025 10:38
[2025-02-15 10:58] LABS: Urine Protein, UAD Negative (Negative)
--- NOTE | 2025-02-15 11:27 | DVH ---
EXAM: CT LS SPINE WO CONTRAST HISTORY: Back pain x 2 weeks COMPARISON: None TECHNIQUE: Noncontrast axial CT images of the lumbar spine were performed. Sagittal and coronal refor matted images were obtained. This CT exam was performed using one or more of the following dose reduc tion techniques: Automated exposure control, adjustment of the mA and/or kv according to patient size , or the use of iterative reconstruction techniques. Radiation Dose: CT Dose: CTDI volume is 8.12 mGy. Dose-length product is 253.58 mGy*cm FINDINGS: No fracture or listhesis are identified about the lumbar spine. There is moderate degenerative disc d isease and facet arthropathy. There is pkmd-se-lkrvfbol spinal canalstenosis at L1-L2, L2-L3, and L4- L5. There is significant neural foraminal stenosis bilaterally at L5-S1 There is fecal retention in t he colon, best appreciated on the sales branch manager view. There are sigmoid colon diverticula, not fully imaged h ere. 2.3 cm gallstone is identified in the dependent portion of the gallbladder. IMPRESSION: 1. No fracture of the lumbar spine. 2. Degenerative disc disease and facet arthropathy with qcxg-pe-rumyfuga spinal canal stenosis at mul tiple levels and significant bilateral neural foraminal stenosis at L5-S1. Consider follow-up noncont rast MRI of the lumbar spine for better characterization on an outpatient basis, especially if the pa tient complains of lower extremity radicular symptoms. 3. Fecal retention in the colon suggestive of constipation. 4. Cholelithiasis.
[2025-02-15] MEDS: MORPHINE SULFATE 4 MG/ML SYR/VIAL IM ONE (11:53)
[2025-02-15 13:58] LABS: Hematocrit 37.4 % (36.0-46.0); Hemoglobin 13.2 g/dL (12.2-16.2); Mean Corpuscular Hemoglobin 30.1 pg (28.0-32.0); Mean Corpuscular Volume 85.6 fL (80.0-100.0); Nucleated Red Blood Cells % 0.1 %
[2025-02-15 14:10] LABS: Chloride 99 mmol/L (98-107); Sodium 140 mmol/L (136-145)
[2025-02-15 14:11] LABS: Anion Gap 11 (5-15); Calcium 10.0 mg/dL (8.7-10.4); Carbon Dioxide 30 mmol/L (20-31)
[2025-02-15 14:13] LABS: Potassium 3.4 mmol/L (3.5-5.1)
[2025-02-15 14:16] LABS: BUN/Creatinine Ratio 18.9 (10.0-20.0); Blood Urea Nitrogen 14 mg/dL (9-23)
[2025-02-15 14:18] LABS: Glucose 110 mg/dL (74-106)
[2025-02-15] MEDS ORDERED: ACETAMINOPHEN 325 MG TAB PO PRN (19:00)
[2025-02-15] MEDS ORDERED: MORPHINE SULFATE INJ 2 MG/ml SYRG IV PRN (19:00)
[2025-02-15] MEDS ORDERED: ONDANSETRON HCL 4 MG/2 ML VIAL IV PRN (19:00)
[2025-02-15] MEDS ORDERED: cefTRIAXone 1GM/50ML D5W 50 ML IV SCH (19:01)
[2025-02-16] VITALS (7 sets, daily range): BP systolic 107–136; BP diastolic 42–79; PULSE 66–88; RESP 16–19; TEMP 97.4–98.9; O2SAT 67–98
--- NOTE | 2025-02-16 00:34 | DVHHP2 ---
History of Present Illness Reason for Visit: Lower back pain History of Present Illness 69-year-old female presents for evaluation of lower back pain. Patient reports a six day history of lower back pain which started after she picked up some heavy boxes a day prior. Denies lower extremity numbness or tingling. She states the pain becomes worse with ambulation. Past Medical History Hypertension and dyslipidemia Past Surgical History Denies Family History Noncontributory Smoke: No ALCOHOL: none Drugs: None Lives: with Family Review of Systems Review of Systems Review of systems are currently negative otherwise addressed in HPI. Allergies: Coded Allergies: NO KNOWN ALLERGIES (Unverified , 07/21/24) Medications Current Medications Medications Dose Ordered Sig/Valeriano Route Start Time Stop Time Status Last Admin Dose Admin Losartan Potassium 100 mg DAILY PO 02/16/25 10:00 Hydrochlorothiazide 25 mg DAILY PO 02/16/25 10:00 Ceftriaxone Sodium 50 ml @ 100 mls/hr DAILY@09 IV 02/15/25 19:01 Acetaminophen/ Hydrocodone Bitart 1 tab Q4HP PRN PO 02/15/25 19:00 Ondansetron HCl 4 mg Q4HP PRN IV 02/15/25 19:00 Enoxaparin Sodium 40 mg DAILY SC 02/16/25 10:00 Acetaminophen 650 mg Q6HP PRN PO 02/15/25 19:00 Morphine Sulfate 2 mg Q4HPRN PRN IV 02/15/25 19:00 Exam Vital Signs Vital Signs Date Time Temp Pulse Resp B/P (MAP) Pulse Ox O2 Delivery O2 Flow Rate FiO2 02/15/25 19:55 98.0 76 16 134/76 (95) 96 98.0 Exam Gen: 69-year-old female in mild distress Skin: Warm, dry, normal color and texture, no rash. HEENT: Normocephalic atraumatic, mucous membranes moist and pink. Neck: Cervical and supraclavicular nodes normal without enlargement, trachea is midline, thyroid gland is normal without masses. Pulmonary: Clear to auscultation and percussion bilaterally. Cardiac: Regular rate and rhythm. No murmur Abdomen: Soft, nontender, nondistended, bowel sounds present all 4 quadrants, no guarding, no rigidity, no organomegaly. Extremities: No cyanosis, clubbing, no edema Neuro: Cranial nerves II through XII grossly intact, normal affect and speech, no focal motor deficits. Labs/Xrays ORDERING PHYSICIAN: MARYJO WEBER NP PROCEDURE(s): LS2CT - LS SPINE WO CONTRAST REASON: Back pain x 2 weeks ORDER NUMBER(s): [id number], ACCESSION NUMBER(s): [id number] EXAM: CT LS SPINE WO CONTRAST HISTORY: Back pain x 2 weeks COMPARISON: None TECHNIQUE: Noncontrast axial CT images of the lumbar spine were performed. Sagittal and coronal reformatted images were obtained. This CT exam was performed using one or more of the following dose reduction techniques: Automated exposure control, adjustment of the mA and/or kv according to patient size, or the use of iterative reconstruction techniques. Radiation Dose: CT Dose: CTDI volume is 8.12 mGy. Dose-length product is 253.58 mGy*cm FINDINGS: No fracture or listhesis are identified about the lumbar spine. There is moderate degenerative disc disease and facet arthropathy. There is [id number] spinal canalstenosis at L1-L2, L2-L3, and L4-L5. There is significant neural foraminal stenosis bilaterally at L5-S1 There is fecal retention in the colon, best appreciated on the manager support view. There are sigmoid colon diverticula, not fully imaged here. 2.3 cm gallstone is identified in the dependent portion of the gallbladder. IMPRESSION: 1. No fracture of the lumbar spine. 2. Degenerative disc disease and facet arthropathy with ssgm-ny-ieovhdwn spinal canal stenosis at multiple levels and significant bilateral neural foraminal tiffani nosis at L5-S1. Consider follow-up noncontrast MRI of the lumbar spine for better characterization on an outpatient basis, especially if the patient complains of lower extremity radicular symptoms. 3. Fecal retention in the colon suggestive of constipation. 4. Cholelithiasis. Labs Test 02/15/25 13:23 02/15/25 10:49 Range/Units White Blood Count 6.7 4.4-10.8 10^3/uL Red Blood Count 4.37 4.0-5.20 10^6/uL Hemoglobin 13.2 12.2-16.2 g/dL Hematocrit 37.4 36.0-46.0 % Mean Corpuscular Volume 85.6 80.0-100.0 fL Mean Corpuscular Hemoglobin 30.1 28.0-32.0 pg Mean Corpuscular Hemoglobin Concent 35.2 32.0-36.0 g/dL Red Cell Distribution Width 13.1 11.8-14.3 % Platelet Count 252 140-450 10^3/uL Mean Platelet Volume 7.6 6.9-10.8 fL Neutrophils (%) (Auto) 69.2 37.0-80.0 % Lymphocytes (%) (Auto) 22.5 10.0-50.0 % Monocytes (%) (Auto) 7.4 0.0-12.0 % Eosinophils (%) (Auto) 0.5 0.0-7.0 % Basophils (%) (Auto) 0.4 0.0-2.0 % Neutrophils # (Auto) 4.6 1.6-8.6 10 ^3/uL Lymphocytes # (Auto) 1.5 0.4-5.4 10 ^3/uL Monocytes # (Auto) 0.5 0-1.3 10 ^3/uL Eosinophils # (Auto) 0 0-0.8 10 ^3/uL Basophils # (Auto) 0 0-0.2 10 ^3/uL Nucleated Red Blood Cells 0.1 % Sodium Level 140 136-145 mmol/L Potassium Level 3.4 L 3.5-5.1 mmol/L Chloride Level 99 98-107 mmol/L Carbon Dioxide Level 30 20-31 mmol/L Anion Gap 11 5-15 Blood Urea Nitrogen 14 9-23 mg/dL Creatinine 0.74 0.550-1.02 mg/dL Glomerular Filtration Rate Calc 87 >90 mL/min BUN/Creatinine Ratio 18.9 10.0-20.0 Serum Glucose 110 H 74-106 mg/dL Calcium Level 10.0 8.7-10.4 mg/dL Urine Color Light-yellow Yellow Urine Clarity Clear Clear Urine pH 7.0 5.0-9.0 Urine Specific [place] 1.010 1.001-1.035 Urine Protein Negative Negative Urine Ketones Negative Negative Urine Blood Negative Negative /uL Urine Nitrite Negative Negative Urine Bilirubin Negative Negative Urine Urobilinogen Normal Negative mg/dL Urine Leukocyte Esterase 2+ Negative /uL Urine RBC <1 0 - 4 /hpf Urine Microscopic WBC 2 0-5 /HPF Urine Squamous Epithelial Cells Few <5 /hpf Urine Bacteria None seen None Seen /hpf Urine Glucose Normal Normal mg/dL SEPSIS Sepsis Screen Date sepsis recognized/suspect: Feb 15, 2025 Time Sepsis recognized/suspect: 1002 Recent Procedure: No On Antibiotic Therapy: No Respiratory Rate >20: No Heart Rate >90: No Temp<36 C (96.8 F) or >38.3 C: No SBP <90 or MAP <65 mmHG: No New Acute Mental Status Change: No Is the patient on CPAP, BIPAP,: No Physician Orders Admit (02/15/25 18:51) Lumbar Spine Wo Contrast (02/15/25 18:53) Losartan Tablet (Cozaar Tablet) (02/16/25 10:00) Hydrochlorothiazide Tablet (Hydrochlorot (02/16/25 10:00) Hydrocodone-Acet 5/325mg Tab ([place] 5/32 (02/15/25 19:00) Ondansetron Hcl (Zofran) (02/15/25 19:00) Enoxaparin Sodium (Lovenox) (02/16/25 10:00) Cardiac Diet-2gna,Lofat,Lochol (02/16/25 Breakfast) Condition: Stable (02/15/25 18:53) Acetaminophen Tablet (Tylenol Tablet) (02/15/25 19:00) Bedrest With Bathroom Privileg (02/15/25 18:53) Morphine Sulfate Injection (02/15/25 19:00) Ceftriaxone 1gm/50ml D5w (Rocephin) (02/15/25 19:01) Vital Signs Date Time Temp Pulse Resp B/P (MAP) Pulse Ox O2 Delivery O2 Flow Rate FiO2 02/15/25 19:55 98.0 76 16 134/76 (95) 96 98.0 02/15/25 17:17 97.7 69 16 140/74 (96) 97 97.7 Laboratory Tests Test 02/15/25 13:23 White Blood Count 6.7 10^3/uL (4.4-10.8) Assessment/Plan Assessment/Plan Assessment Lumbar spine stenosis Hypertension UTI Plan Admit the patient to [facility] to the hospitalist MRI of the lumbar spine Rocephin Pain management Resume home medications Continue treatment per orders. Plan discussed with: Patient My Orders Orders - IKER ISSA Procedure Category Date Status Time Admit ADMIT 02/15/25 Transmitted 18:51 Lumbar Spine Wo MRI 02/15/25 Logged Contrast 18:53 Losartan Tablet PHA 02/16/25 In Process (Cozaar Tablet) 10:00 Hydrochlorothiazide PHA 02/16/25 In Process Tablet (Hydrochlorot 10:00 Hydrocodone-Acet PHA 02/15/25 In Process 5/325mg Tab ([place] 19:00 Ondansetron Hcl PHA 02/15/25 In Process (Zofran) 19:00 Enoxaparin Sodium PHA 02/16/25 In Process (Lovenox) 10:00 Cardiac DIET 02/16/25 Transmitted Diet-2gna,Lofat,Lochol Breakfast Condition: Stable SURESH 02/15/25 In Process 18:53 Acetaminophen Tablet PHA 02/15/25 In Process (Tylenol Tablet) 19:00 Bedrest With Bathroom SURESH 02/15/25 In Process Privileg 18:53 Morphine Sulfate PHA 02/15/25 In Process Injection 19:00 Ceftriaxone 1gm/50ml PHA 02/15/25 In Process D5w (Rocephin) 19:01 Date of Service: Feb 15, 2025 Billing Provider: IKER ISSA Common Visit Codes: [id number] INP/OBS CARE (MOD) IKER ISSA Feb 16, 2025 00:34
[2025-02-16] MEDS: HYDROcodone-ACET 5/325MG TAB PO PRN (02:46)
[2025-02-16] MEDS: cefTRIAXone 1GM/50ML D5W 50 ML IV SCH (04:31)
[2025-02-16] MEDS ORDERED: ATOR20TA PO (05:02)
--- NOTE | 2025-02-16 08:11 | DVHPNRES ---
Progress Note Date Seen: Feb 16, 2025 Resident Creating Document: JAQUELINE JENSEN RESIDENT Medical Necessity Reason Pt with a Central, PICC or Fol: No Subjective Review of Systems Barbara Thomas is a 69-year-old female, past medical history of hypertension, arthritis, presented to the ER with chief complain of back pain since last 5 days. Her pain continued to worsen, urging her visit to ER yesterday. She reported pain started after she picked up some heavy boxes a day prior. Pain radiated from left lower side of back to right side. She complained of tingling sensation on and off on bilateral feet. No neck pain, vertigo, dizziness, similar episodes in the past, burning micturition, dysuria. Denies lower extremity numbness or tingling. She stated the pain becomes worse with ambulation. PMHx: hypertension, arthritis Home medication: tramadol, losartan, nitrofurantoin, celecoxib, gabapentin ROS: Constitutional: Denies weight loss, fever and chills. HEENT: Denies changes in vision and hearing. Respiratory: Denies shortness of breath and cough Cardiovascular: Denies chest discomfort or palpitations GI: Denies abdominal pain, nausea, vomiting and diarrhea. : Denies dysuria and urinary frequency. Musculoskeletal: Back pain Skin: Denies rash and pruritus. Neurological: Denies dizziness, headache, vision or hearing problems She is examined at bedside today. Vitals are stable, on room air. She continues to complain of pain in the back with tingling and numbness in bilateral feet. Objective vital signs Vital Sign Date Time Temp Pulse Resp B/P (MAP) Pulse Ox O2 Delivery O2 Flow Rate FiO2 02/16/25 05:00 98.9 68 17 128/77 (94) 98 98.9 02/16/25 02:24 Room Air* 0 21 Total Intake and Output 02/15/25 02/15/25 02/16/25 15:00 23:00 07:00 Intake Total 425 ml Balance 425 ml medications Current Medications Medications Dose Ordered Sig/Valeriano Route Start Time Stop Time Status Last Admin Dose Admin Losartan Potassium 100 mg DAILY PO 02/16/25 10:00 Hydrochlorothiazide 25 mg DAILY PO 02/16/25 10:00 Acetaminophen/ Hydrocodone Bitart 1 tab Q4HP PRN PO 02/15/25 19:00 02/16/25 02:46 1 TAB Ondansetron HCl 4 mg Q4HP PRN IV 02/15/25 19:00 Enoxaparin Sodium 40 mg DAILY SC 02/16/25 10:00 Acetaminophen 650 mg Q6HP PRN PO 02/15/25 19:00 Morphine Sulfate 2 mg Q4HPRN PRN IV 02/15/25 19:00 Ceftriaxone Sodium 50 ml @ 100 mls/hr DAILY@0400 IV 02/16/25 04:00 02/16/25 04:31 100 MLS/HR Examination General: Patient alert and oriented in person, place and time. Patient following commands. HEENT: Normocephalic, atraumatic, moist mucous membranes Respiratory/pulmonary: Clear lungs bilaterally, vesicular murmurs present in almost all lung rae, no associated crackles or wheezes. Cardiovascular: Normal heart sounds S1 and S2 with no associated murmurs Abdomen: Tenderness in left lower abdomen Extremities: There is no peripheral edema present at the lower extremities. Peripheral Pulses: 3+ Radial (R). 3+ Radial (L). 3+ Dorsalis pedis (R). 3+ Dorsalis pedis(L) Skin: No rashes or pruritus, there is no sacral edema present at this time. Neurological: Intact cranial nerves with no focal neurologic deficits Other: tenderness in lower back on left side. Numbness and tingling in bilateral lower extremities aggravated on leg raise laboratory and microbiology Laboratory Tests 02/15/25 13:23 Test 02/15/25 13:23 Range/Units Serum Glucose 110 H 74-106 mg/dL Problem List/Assessment/Plan Problem List/Assessment/Plan Spinal stenosis with neurogenic claudication, possible Spinal abscess, ruled out Initial labs show hematology WNL, UA WNL CT revealed: Degenerative disc disease and facet arthropathy with [id number] spinal canal stenosis at multiple levels and significant bilateral neural foraminal stenosis at L5-S1. Consider follow-up noncontrast MRI of the lumbar spine for better characterization on an outpatient basis, especially if the patient complains of lower extremity radicular symptoms. Fecal retention in the colon suggestive of constipation.. Cholelithiasis. Started on IV ceftriaxone Continue pain management, Zofran Essential hypertension Managed with hydrochlorothiazide, losartan Hypokalemia Potassium 3.4 UTI, ruled out Essential hypertension History of arthritis DIET: Regular Liquid DVT PROPHYLAXIS: Lovenox CODE STATUS: Goals of care discussed with patient at bedside for more than 35 minutes. Full code DISPOSITION: Med/surge Patient's status and plan discussed with the patient. Case discussed with Dr. Stern. Plan discussed with: Patient Date of Service: Feb 16, 2025 Billing Provider: THADDEUS STERN MD Common Visit Codes: [id number] INP/OBS CARE(HIGH) JAQUELINE JENSEN RESIDENT Feb 16, 2025 08:11 THADDEUS STERN MD Feb 19, 2025 22:26
--- NOTE | 2025-02-16 09:18 | DVH ---
PROCEDURE: MRI LUMBAR SPINE WO CONTRAST INDICATION: back pain Exam Date: 02/16/2025 08:28 AM COMPARISON: CT LS SPINE WO CONTRAST on DOS: 02/15/25 TECHNIQUE: MRI lumbar spine without intravenous contrast. FINDINGS: The lumbar alignment is intact. There are degenerative endplate changes including modic endplate ch anges with anterior and lateral osteophytes throughout the lumbar spine. The visualized distal spinal cord and conus medullaris are within normal limits. The conus medullaris appears to terminate withi n normal limits. The visualized retroperitoneal and paraspinal soft tissues are unremarkable. The following axial levels are detailed below: T12-L1: There is a mild circumferential disc bulge. No significant central canal or neuroforaminal s tenosis. L1-L2: There is a mild circumferential disc bulge. No significant central canal or neuroforaminal s tenosis. L2-L3: There is a moderate circumferential disc bulge narrowing the central canal to 8 mm. No signi ficant neuroforaminal stenosis. L3-L4: There is a mild circumferential disc bulge. No significant central canal or neuroforaminal s tenosis. L4-L5: There is a severe circumferential disc bulge complicated by facet arthropathy narrowing the central canal to 8 mm with associated moderate to severe bilateral neuroforaminal stenosis. L5-S1: There is a moderate circumferential disc bulge complicated by facet arthropathy associated wi th mild to moderate bilateral neuroforaminal stenosis. No significant central canal stenosis. IMPRESSION: 1. Multilevel degenerative disease. Moderate central canal stenosis L2-3 and L4-5. Neural foraminal stenosis as above. HS:Y
[2025-02-16] MEDS: ENOXAPARIN SOD 40 MG/0.4 ML SYRINGE SC SCH (10:49)
[2025-02-16] MEDS: POTASSIUM EFFERVESENT TAB 25 MEQ GT ONE (10:49)
[2025-02-16] MEDS: hydroCHLOROthiazide 25 MG TAB PO SCH (10:50)
[2025-02-16] MEDS: LOSARTAN POTASSIUM 50 MG TAB PO SCH (10:51)
[2025-02-17] VITALS (8 sets, daily range): BP systolic 92–143; BP diastolic 54–83; PULSE 17–90; RESP 17–19; TEMP 96.7–98.8; O2SAT 95–98
[2025-02-17 07:26] LABS: Alanine Aminotransferase 12 U/L (7-40); Albumin 4.4 g/dL (3.2-4.8); Alkaline Phosphatase 69 U/L (46-116); Anion Gap 8 (5-15); BUN/Creatinine Ratio 13.2 (10.0-20.0); Blood Urea Nitrogen 10 mg/dL (9-23); Calcium 9.6 mg/dL (8.7-10.4); Chloride 100 mmol/L (98-107); Glucose 100 mg/dL (74-106); Potassium 4.1 mmol/L (3.5-5.1); Sodium 140 mmol/L (136-145); Total Protein 6.6 g/dL (5.7-8.2)
[2025-02-17 07:27] LABS: Bilirubin, Total 0.5 mg/dL (0.2-1.0)
[2025-02-17 07:29] LABS: Carbon Dioxide 32 mmol/L (20-31)
[2025-02-17 16:26] LABS: Hepatitis C Antibody Negative (Negative)
[2025-02-17 16:27] LABS: Hepatitis B Surface Antigen Negative (Negative)
--- NOTE | 2025-02-17 16:58 | DVHPNRES ---
Progress Note Date Seen: Feb 17, 2025 Resident Creating Document: JAQUELINE JENSEN RESIDENT Medical Necessity Reason Pt with a Central, PICC or Fol: No Subjective Review of Systems Barbara Thomas is a 69-year-old female, past medical history of hypertension, arthritis, presented to the ER with chief complain of back pain since last 5 days. Her pain continued to worsen, urging her visit to ER yesterday. She reported pain started after she picked up some heavy boxes a day prior. Pain radiated from left lower side of back to right side. She complained of tingling sensation on and off on bilateral feet. No neck pain, vertigo, dizziness, similar episodes in the past, burning micturition, dysuria. Denies lower extremity numbness or tingling. She stated the pain becomes worse with ambulation. PMHx: hypertension, arthritis Home medication: tramadol, losartan, nitrofurantoin, celecoxib, gabapentin ROS: Constitutional: Denies weight loss, fever and chills. HEENT: Denies changes in vision and hearing. Respiratory: Denies shortness of breath and cough Cardiovascular: Denies chest discomfort or palpitations GI: Denies abdominal pain, nausea, vomiting and diarrhea. : Denies dysuria and urinary frequency. Musculoskeletal: Back pain Skin: Denies rash and pruritus. Neurological: Denies dizziness, headache, vision or hearing problems She is examined at bedside today. Vitals are stable, on room air. She continues to complain of pain in the back with tingling and numbness in bilateral feet. She also complains of difficulty in ambulation, PT consulted, we will continue monitoring and managing Objective vital signs Vital Sign Date Time Temp Pulse Resp B/P (MAP) Pulse Ox O2 Delivery O2 Flow Rate FiO2 02/17/25 13:00 96.7 60 19 143/81 (101) 95 96.7 02/17/25 08:00 Room Air* 0 21 Total Intake and Output 02/16/25 02/16/25 02/17/25 15:00 23:00 07:00 Intake Total 800 ml 750 ml Balance 800 ml 750 ml medications Current Medications Medications Dose Ordered Sig/Valeriano Route Start Time Stop Time Status Last Admin Dose Admin Losartan Potassium 100 mg DAILY PO 02/16/25 10:00 02/17/25 09:01 100 MG Hydrochlorothiazide 25 mg DAILY PO 02/16/25 10:00 02/17/25 09:03 25 MG Acetaminophen/ Hydrocodone Bitart 1 tab Q4HP PRN PO 02/15/25 19:00 02/16/25 20:30 1 TAB Ondansetron HCl 4 mg Q4HP PRN IV 02/15/25 19:00 Enoxaparin Sodium 40 mg DAILY SC 02/16/25 10:00 02/17/25 09:01 40 MG Acetaminophen 650 mg Q6HP PRN PO 02/15/25 19:00 Morphine Sulfate 2 mg Q4HPRN PRN IV 02/15/25 19:00 Ceftriaxone Sodium 50 ml @ 100 mls/hr DAILY@0400 IV 02/16/25 04:00 02/17/25 04:41 100 MLS/HR Examination General: Patient alert and oriented in person, place and time. Patient following commands. HEENT: Normocephalic, atraumatic, moist mucous membranes Respiratory/pulmonary: Clear lungs bilaterally, vesicular murmurs present in almost all lung rae, no associated crackles or wheezes. Cardiovascular: Normal heart sounds S1 and S2 with no associated murmurs Abdomen: Tenderness in left lower abdomen Extremities: There is no peripheral edema present at the lower extremities. Peripheral Pulses: 3+ Radial (R). 3+ Radial (L). 3+ Dorsalis pedis (R). 3+ Dorsalis pedis(L) Skin: No rashes or pruritus, there is no sacral edema present at this time. Neurological: Intact cranial nerves with no focal neurologic deficits Other: tenderness in lower back on left side. laboratory and microbiology Laboratory Tests 02/17/25 06:30 02/15/25 13:23 Test 02/17/25 06:30 Range/Units Serum Glucose 100 74-106 mg/dL Problem List/Assessment/Plan Problem List/Assessment/Plan Spinal stenosis with neurogenic claudication, possible Spinal abscess, ruled out Initial labs show hematology WNL, UA WNL CT revealed: Degenerative disc disease and facet arthropathy with [id number] spinal canal stenosis at multiple levels and significant bilateral neural foraminal stenosis at L5-S1. Consider follow-up noncontrast MRI of the lumbar spine for better characterization on an outpatient basis, especially if the patient complains of lower extremity radicular symptoms. Fecal retention in the colon suggestive of constipation.. Cholelithiasis. Started on IV ceftriaxone Continue pain management, Zofran Essential hypertension Hypotension Continue monitoring and managing blood pressure Hypokalemia Potassium 3.4 UTI, ruled out Essential hypertension History of arthritis DIET: Regular Liquid DVT PROPHYLAXIS: Lovenox CODE STATUS: Goals of care discussed with patient at bedside for more than 25 minutes. Full code DISPOSITION: Med/surge Patient's status and plan discussed with the patient. Case discussed with Dr. Stern. Plan discussed with: Patient My Orders My Orders Orders - JAQUELINE JENSEN RESIDENT Procedure Category Date Status Time Pt Request For Service PT 02/17/25 Logged 14:02 Date of Service: Feb 17, 2025 Billing Provider: THADDEUS STERN MD Common Visit Codes: [id number] INP/OBS CARE(HIGH) JAQUELINE JENSEN RESIDENT Feb 17, 2025 16:58 THADDEUS STERN MD Feb 19, 2025 22:55
[2025-02-18 05:00] VITALS: BP 103/70; PULSE 64; RESP 17; TEMP 98; O2SAT 96
[2025-02-18 08:00] VITALS: PULSE 65; RESP 17
[2025-02-18 09:00] VITALS: BP_SYST 126; BP_SYST 133; BP_DIAS 66; BP_DIAS 84; PULSE 65; PULSE 80; RESP 17; RESP 18; TEMP 97.7; TEMP 98.6; O2SAT 96; O2SAT 97
--- NOTE | 2025-02-18 09:04 | DVHDSRES ---
Discharge Summary Date of Admission Resident Creating Document: JAQUELINE JENSEN RESIDENT Feb 15, 2025 at 18:51 Date of Discharge: Feb 18, 2025 Labs/Diagnostic Data: Laboratory Results Test 02/17/25 06:30 02/16/25 10:40 02/15/25 13:23 02/15/25 10:49 Sodium Level 140 mmol/L (136-145) Potassium Level 4.1 mmol/L (3.5-5.1) Chloride Level 100 mmol/L (98-107) Carbon Dioxide Level 32 mmol/L (20-31) Anion Gap 8 (5-15) Blood Urea Nitrogen 10 mg/dL (9-23) Creatinine 0.76 mg/dL (0.550-1.02) Glomerular Filtration Rate Calc 84 mL/min (>90) BUN/Creatinine Ratio 13.2 (10.0-20.0) Serum Glucose 100 mg/dL (74-106) Calcium Level 9.6 mg/dL (8.7-10.4) Total Bilirubin 0.5 mg/dL (0.2-1.0) Aspartate Amino Transferase (AST) 13 U/L (13-40) Alanine Aminotransferase (ALT) 12 U/L (7-40) Alkaline Phosphatase 69 U/L (46-116) Total Protein 6.6 g/dL (5.7-8.2) Albumin 4.4 g/dL (3.2-4.8) Hepatitis B Surface Antigen Negative (Negative) Hepatitis C Antibody Negative (Negative) White Blood Count 6.7 10^3/uL (4.4-10.8) Red Blood Count 4.37 10^6/uL (4.0-5.20) Hemoglobin 13.2 g/dL (12.2-16.2) Hematocrit 37.4 % (36.0-46.0) Mean Corpuscular Volume 85.6 fL (80.0-100.0) Mean Corpuscular Hemoglobin 30.1 pg (28.0-32.0) Mean Corpuscular Hemoglobin Concent 35.2 g/dL (32.0-36.0) Red Cell Distribution Width 13.1 % (11.8-14.3) Platelet Count 252 10^3/uL (140-450) Mean Platelet Volume 7.6 fL (6.9-10.8) Neutrophils (%) (Auto) 69.2 % (37.0-80.0) Lymphocytes (%) (Auto) 22.5 % (10.0-50.0) Monocytes (%) (Auto) 7.4 % (0.0-12.0) Eosinophils (%) (Auto) 0.5 % (0.0-7.0) Basophils (%) (Auto) 0.4 % (0.0-2.0) Neutrophils # (Auto) 4.6 10 ^3/uL (1.6-8.6) Lymphocytes # (Auto) 1.5 10 ^3/uL (0.4-5.4) Monocytes # (Auto) 0.5 10 ^3/uL (0-1.3) Eosinophils # (Auto) 0 10 ^3/uL (0-0.8) Basophils # (Auto) 0 10 ^3/uL (0-0.2) Nucleated Red Blood Cells 0.1 % Urine Color Light-yellow (Yellow) Urine Clarity Clear (Clear) Urine pH 7.0 (5.0-9.0) Urine Specific [place] 1.010 (1.001-1.035) Urine Protein Negative (Negative) Urine Ketones Negative (Negative) Urine Blood Negative /uL (Negative) Urine Nitrite Negative (Negative) Urine Bilirubin Negative (Negative) Urine Urobilinogen Normal mg/dL (Negative) Urine Leukocyte Esterase 2+ /uL (Negative) Urine RBC <1 /hpf (0 - 4) Urine Microscopic WBC 2 /HPF (0-5) Urine Squamous Epithelial Cells Few /hpf (<5) Urine Bacteria None seen /hpf (None Seen) Urine Glucose Normal mg/dL (Normal) Other Laboratory Tests 02/17/25 06:30 02/15/25 13:23 Brief Hx & Hospital Course: Brief history: Barbara Thomas is a 69-year-old female, past medical history of hypertension, arthritis, presented to the ER with chief complain of back pain since last 5 days. Her pain continued to worsen, urging her visit to ER yesterday. She reported pain started after she picked up some heavy boxes a day prior. Pain radiated from left lower side of back to right side. She complained of tingling sensation on and off on bilateral feet. No neck pain, vertigo, dizziness, similar episodes in the past, burning micturition, dysuria. Denies lower extremity numbness or tingling. She stated the pain becomes worse with ambulation. Hospital course: She was admitted along the lines of spinal stenosis with neurogenic claudication and to rule out spinal abscess. Initial labs show hematology WNL, UA WNL. She was started on IV ceftriaxone, pain management, Zofran. CT revealed degenerative disc disease and facet arthropathy with [id number] spinal canal stenosis at multiple levels and significant bilateral neural foraminal stenosis at L5-S1. An MRI revealed neural foraminal stenosis central canal stenosis L2-3 and L4-5. she was managed with steroids. Her pain eventually improved. PT was consulted for ambulation needs, she is stable for discharge without needs and will follow-up with spinal surgeon outpatient. Discharge diagnosis: Spinal stenosis with neurogenic claudication, possible Spinal abscess, ruled out Essential hypertension Hypotension Hypokalemia UTI, ruled out Essential hypertension History of arthritis Cholelithiasis without cholecystitis, CT finding Discharge plan: Please follow-up with PCP in 1 week. Please follow with spinal surgeon outpatient Please follow-up in discharge clinic in 1 week Please continue oral antibiotic course Please continue home medications Operations or Procedures MRI LUMBAR SPINE WO CONTRAST INDICATION: back pain Exam Date: 02/16/2025 08:28 AM COMPARISON: CT LS SPINE WO CONTRAST on DOS: 02/15/25 TECHNIQUE: MRI lumbar spine without intravenous contrast. FINDINGS: The lumbar alignment is intact. There are degenerative endplate changes including modic endplate changes with anterior and lateral osteophytes throughout the lumbar spine. The visualized distal spinal cord and conus medullaris are within normal limits. The conus medullaris appears to terminate within normal limits. The visualized retroperitoneal and paraspinal soft tissues are unremarkable. The following axial levels are detailed below: T12-L1: There is a mild circumferential disc bulge. No significant central canal or neuroforaminal stenosis. L1-L2: There is a mild circumferential disc bulge. No significant central canal or neuroforaminal stenosis. L2-L3: There is a moderate circumferential disc bulge narrowing the central canal to 8 mm. No significant neuroforaminal stenosis. L3-L4: There is a mild circumferential disc bulge. No significant central canal or neuroforaminal stenosis. L4-L5: There is a severe circumferential disc bulge complicated by facet arthropathy narrowing the central canal to 8 mm with associated moderate to severe bilateral neuroforaminal stenosis. L5-S1: There is a moderate circumferential disc bulge complicated by facet arthropathy associated with mild to moderate bilateral neuroforaminal stenosis. No significant central canal stenosis. IMPRESSION: 1. Multilevel degenerative disease. Moderate central canal stenosis L2-3 and L4-5. Neural foraminal stenosis as above. --- CT LS SPINE WO CONTRAST HISTORY: Back pain x 2 weeks COMPARISON: None TECHNIQUE: Noncontrast axial CT images of the lumbar spine were performed. Sagittal and coronal reformatted images were obtained. This CT exam was performed using one or more of the following dose reduction techniques: Automated exposure control, adjustment of the mA and/or kv according to patient size, or the use of iterative reconstruction techniques. Radiation Dose: CT Dose: CTDI volume is 8.12 mGy. Dose-length product is 253.58 mGy*cm FINDINGS: No fracture or listhesis are identified about the lumbar spine. There is moderate degenerative disc disease and facet arthropathy. There is [id number] spinal canalstenosis at L1-L2, L2-L3, and L4-L5. There is significant neural foraminal stenosis bilaterally at L5-S1 There is fecal retention in the colon, best appreciated on the airplane woodworker view. There are sigmoid colon diverticula, not fully imaged here. 2.3 cm gallstone is identified in the dependent portion of the gallbladder. IMPRESSION: 1. No fracture of the lumbar spine. 2. Degenerative disc disease and facet arthropathy with [id number] spinal canal stenosis at multiple levels and significant bilateral neural foraminal stenosis at L5-S1. Consider follow-up noncontrast MRI of the lumbar spine for better characterization on an outpatient basis, especially if the patient complains of lower extremity radicular symptoms. 3. Fecal retention in the colon suggestive of constipation. 4. Cholelithiasis. Condition at Discharge: Stable Final Diagnosis/Problems List Spinal stenosis with neurogenic claudication, possible Spinal abscess, ruled out Essential hypertension Hypotension Hypokalemia UTI, ruled out Essential hypertension History of arthritis Cholelithiasis without cholecystitis, CT finding Discharge Disposition: Home Discharge Instruct/Medications Continued Medications: Atorvastatin Calcium (Lipitor) 20 Mg Tab 1 TAB PO DAILY, #90 TAB 1 Refill Methylprednisolone (Medrol Dosepak) 4 Mg Rod 4 MG PO UD, #21 TAB UAD Nitrofurantoin Monohydrate Mac (Macrobid) 100 Mg Cap 100 MG PO BID for 7 Days, #14 CAP Prednisone (Prednisone) 20 Mg Tab 40 MG PO DAILY, #20 TAB Tramadol HCl (Tramadol HCl) 50 Mg Tab 50 MG PO BID, #20 TAB Scheduled Atorvastatin Calcium (Lipitor), 1 TAB PO DAILY, (Reported) Methylprednisolone (Medrol Dosepak), 4 MG PO UD Nitrofurantoin Monohydrate Mac (Macrobid), 100 MG PO BID Prednisone (Prednisone), 40 MG PO DAILY Tramadol HCl (Tramadol HCl), 50 MG PO BID Discharge Statement: "Patient was advised to return to the ER or call 911 if any headaches, dizziness, shortness of breath, chest pain, abdominal pain, bleeding, fevers, or worsening of medical condition. Patient was counseled about treatment plan, medications, possible side effects, patientverbalized understanding. All questions were answered to the best of my ability. This discharge took greater then 30 minutes in planning, reviewing documentation, counseling the patient, and discussing with other team members." ASSESSMENT ASSESSMENT Assessment Date of Service: Feb 18, 2025 Billing Provider: THADDEUS FRANCIS MD Common Visit Codes: 48348-PXL/OBS DISCH DAY >30min JAQUELINE JENSEN RESIDENT Feb 18, 2025 09:04 THADDEUS FRANCIS MD Feb 19, 2025 23:04
[2025-02-18 10:18] VITALS: BP 126/84; PULSE 74; RESP 17; TEMP 36.7
== END 2025-02-18 11:15 | disposition home or self-care (01) | DRG 347 ==
LOC: ER 09:58 → OVERFLOW 18:51 → WEST WING 02-16 02:23
PROVIDERS: ADMIT Student in an Organized Health Care Education/Training Program; ATTEND Student in an Organized Health Care Education/Training Program
DX: M48.062 Spinal stenosis, lumbar region with neurogenic claudication (principal); E78.5 Hyperlipidemia, unspecified; E87.6 Hypokalemia; I10 Essential (primary) hypertension; M48.07 Spinal stenosis, lumbosacral region; Z79.899 Other long term (current) drug therapy
CPT/HCPCS: 36415; 72131; 72148; 80048; 80053; 81001; 84132; 85025; 86803; 87340; 96372; 97163; G0378